=== PATIENT | female | born 1970 | race Caucasian/White ===

== ENCOUNTER 2017-07-05 20:17 | Emergency (ER) | payer BC ==
[~2017-07-05] VITALS: Ht 165.1 cm; Wt 59.9 kg
[2017-07-05] MEDS ORDERED: IV NORMAL SALINE 1000 ML BAG IV ONE (20:45)
[2017-07-05 21:12] LABS: POTASSIUM 4.3 mmol/L (3.5-5.1)
[2017-07-05 21:13] LABS: BASOPHILS % (AUTO) 0.2 % (0.0-2.0); EOSINOPHILS # (AUTO) 0.2 K/uL (0.0-0.7); EOSINOPHILS % (AUTO) 1.1 % (0.0-7.0); HEMATOCRIT 30.6 % (37-47); LYMPHOCYTES # (AUTO) 1.5 K/UL (0.8-4.8); LYMPHOCYTES % (AUTO) 10.1 % (20.5-51.5); MEAN CORPUSCULAR HEMOGLOBIN 28.3 UUG (27.0-31.0); MEAN CORPUSCULAR HGB CONC 33 g/dL (32.0-37.0); MONOCYTES # (AUTO) 0.7 K/UL (0.1-1.30); MONOCYTES % (AUTO) 4.4 % (0.0-11.0); NEUTROPHILS # (AUTO) 12.7 K/UL (1.8-8.9); NEUTROPHILS % (AUTO) 84.2 % (38.5-71.5); PLATELET COUNT (AUTO) 340 K/UL (150-450); RED BLOOD CELL COUNT(AUTO) 3.52 MIL/UL (4.2-5.4); WHITE BLOOD COUNT (AUTO) 15.1 K/UL (4.0-11.2)
[2017-07-05] MEDS ORDERED: ONDANSETRON IV *ER 4 MG/2 ML VIAL IV ONE ×2 (21:15→22:00)
[2017-07-05 21:27] LABS: BAND % (MANUAL) 8 % (0-10); LYMPHOCYTES % (MANUAL) 14 % (20-40); MONOCYTES % (MANUAL) 3 % (2-10); NEUTROPHILS % (MANUAL) 75 % (42-75)
[2017-07-05] MEDS ORDERED: ONDANSETRON 4 MG/2 ML VIAL ONE ×2 (21:28→22:04)
[2017-07-05] MEDS: CEFTRIAXONE 1 G in IV DEXTROSE 5% 50 ML IV ONE ×2 (21:35→21:37)
[2017-07-05] MEDS ORDERED: CEFTRIAXONE 1 G VIAL ONE (21:47)
[2017-07-05] MEDS ORDERED: METOCLOPRAMIDE HCL 10 MG/2 ML VIAL IV ONE (22:15)
[2017-07-05] MEDS ORDERED: METOCLOPRAMIDE HCL 10 MG/2 ML VIAL ONE ×2 (22:27→22:30)
--- NOTE | 2017-07-05 22:51 | NUR ---
Patient discharged to home in stable conditon. Written and verbal after care instructions given. Patient verbalizes understanding of instructions.
== END 2017-07-05 22:53 | disposition home or self-care (01) ==
LOC: ER 20:19
DX: R55 Syncope and collapse (principal)
CPT/HCPCS: 36415; 70030-TC; 85025; 93005; A4663; J0696; J2405; J2765; J7030; J7060

== ENCOUNTER 2017-07-10 09:01 | Emergency (ER) | payer BC ==
[~2017-07-10] VITALS: Ht 162.6 cm; Wt 59.0 kg
--- NOTE | 2017-07-10 09:15 | NUR ---
PT CAME BY RESCUE #83. ACCORDING TO RESCUE CALL PT WAS PULSELESS AT THE FIELD. CPR ALS WAS STARTED BY PARAMEDICS. FULL CPR ALS WAS CONTINUED AT PT's ARRIVAL TO [facility] ER UNDER DIRECT SUPERVISION OF DR YANG. PT WAS PRONOUNCED AT [address] YANG. PT's WAS CALLED IN, TO THE BEDSIDE.
--- NOTE | 2017-07-10 09:40 | NUR ---
NIPPLE MAKER WAS CALLED BY HEAD TURBINE OPERATOR SHELBY. [facility] [employer] WAS CALLED BY GEORGE GRIMALDO.
--- NOTE | 2017-07-10 09:54 | NUR ---
PT'S INFORMATION ABOUT PREVIOS PT's VISIT TO [facility] ER WAS RELEASED, AFTER PT SIGNED INFORMATION RELEASE CONSENT FORM, TO EMS [address]. NURSING GEOTECHNICAL INTERN SHELBY AUTORISED INFORMATION RELEASE.
--- NOTE | 2017-07-10 10:39 | NUR ---
PT'S TALKED TO DAY LIGHT RELIEF OPERATOR. PT'S LEFT HOSPITAL ER WITH HIS FAMILY MEMBERS. PT'S BODY WAS TRANSFERED TO [facility]. LUCAS FROM [facility] CALLED TO [facility], PT's INFORMATION WAS PROVIDED.
[2017-07-10] MEDS ORDERED: EPINEPHRINE-PF 1:1000 1 MG/ML AMPUL IV ONE ×2 (11:00)
== END 2017-07-10 11:00 | disposition expired ==
LOC: ER 09:01
DX: I46.9 Cardiac arrest, cause unspecified (principal)
CPT/HCPCS: 92950; 99285; A4663; J0171; 70030-TC